=== PATIENT | male | born 1945 | race Caucasian/White ===

== ENCOUNTER 2017-12-09 21:16 | Emergency (ER) | payer MEDICARE ==
[~2017-12-09] VITALS: Ht 182.9 cm; Wt 113.4 kg
[2017-12-09 21:32] VITALS: BP_SYST 138
[2017-12-09 22:26] VITALS: BP_SYST 138
== END 2017-12-09 22:26 | disposition home or self-care (01) ==
LOC: SED 21:16
DX: S51.851A Open bite of right forearm, initial encounter (principal); E78.5 Hyperlipidemia, unspecified; I10 Essential (primary) hypertension; W54.0XXA Bitten by dog, initial encounter; Y93.89 Activity, other specified; Y92.89 Other specified places as the place of occurrence of the external cause; Y99.8 Other external cause status
CPT/HCPCS: 99283